=== PATIENT | male | born 1965 | race Caucasian/White ===

== ENCOUNTER → 2021-05-15 | Outpatient (CLI) | payer BC | LOC: KOH-I 14:18 | DX: N28.9 Disorder of kidney and ureter, unspecified (principal) | CPT/HCPCS: 76775 ==

== ENCOUNTER → 2021-08-02 | Outpatient (CLI) | payer BC | LOC: KOH-I 13:20 | DX: R10.9 Unspecified abdominal pain (principal) | CPT/HCPCS: 74176 ==